=== PATIENT | female | born 1985 | race Two or more races ===

== ENCOUNTER 2023-11-15 10:35 | Observation (INO) | payer MEDICAID ==
[2023-11-15] MEDS ORDERED: PREN1TAB71 OR (10:55)
[2023-11-15 12:17] LABS: Fern Testing Negative
[2023-11-15 12:23] LABS: Vaginal Bacteria Many; Vaginal Clue Cells None Seen; Vaginal Epithelial Cells Many; Vaginal Trichomonas Not Present
== END 2023-11-15 13:20 | disposition home or self-care (01) ==
LOC: LDRP 10:35 → UNDOADMOB 10:35 → LDRP 10:50 → UNDODISOB 13:20
PROVIDERS: ADMIT Obstetrics & Gynecology; ATTEND Obstetrics & Gynecology
DX: O42.913 Preterm premature rupture of membranes, unspecified as to length of time between rupture and onset of labor, third trimester (principal); O09.523 Supervision of elderly multigravida, third trimester; Z3A.30 30 weeks gestation of pregnancy
CPT/HCPCS: 59025; 81002; 84112; 87086; 87210; 94760; G0378; Q0114